=== PATIENT | female | born 1980 | race Caucasian/White ===

== ENCOUNTER → 2017-05-14 | Outpatient (CLI) | payer OTHER ==
[~2017-05-14] MED LIST: BIOT1CAP9 PO; CHOL200027 PO; CYM/30 PO; FERR1TAB61 PO; FLAX1CAP11 PO; MAGN500T4 PO; MULT-506 PO; OMEG10007 PO; RXC5 PO; VITA10004 PO; ZINC1TAB4 PO
== END | disposition home or self-care (01) ==
LOC: C.LAB 03:56
DX: Z02.83 Encounter for blood-alcohol and blood-drug test (principal)